=== PATIENT | male | born 1985 ===

== ENCOUNTER 2020-04-22 10:36 | Inpatient (IN) | payer MEDICAID ==
[~2020-04-22] VITALS: Ht 180.3 cm; Wt 100.0 kg
[2020-04-22] MEDS ORDERED: normal saline 1000ML IV soln IVB ONE (11:25)
[2020-04-22] MEDS ORDERED: ondansetron/PF 4mg/2ml inj IV ONE ×2 (11:25→13:45)
[2020-04-22] MEDS ORDERED: famotidine/PF 10 mg/ml inj IV ONE (11:25)
[2020-04-22 11:38] LABS: BASOPHILS % (AUTO) 0.1 % (0-1); EOSINOPHILS % (AUTO) 0.1 % (0-6); HEMATOCRIT 54.5 % (42.0-52.0); LYMPHOCYTES # (AUTO) 1.4 X10'3 (1.1-4.8); LYMPHOCYTES % (AUTO) 9.3 % (21-51); MEAN CORPUSCULAR HEMOGLOBIN 30.1 PG (27.0-31.0); MEAN CORPUSCULAR HGB CONC 33.4 g/dL (33.0-36.5); MEAN CORPUSCULAR VOLUME 90.2 FL (78-98); MONOCYTES # (AUTO) 0.8 X10'3 (0-0.9); MONOCYTES % (AUTO) 5.2 % (2-12); NEUTROPHILS # (AUTO) 12.7 X10'3 (1.8-7.7); NEUTROPHILS % (AUTO) 85.3 % (42-75); PLATELET COUNT 274 X10'3 (140-440); RED BLOOD COUNT 6.04 X10'6 (4.70-6.10); RED CELL DISTRIBUTION WIDTH 12.7 % (11.5-14.5); WHITE BLOOD COUNT 14.8 X10'3 (4.5-11.0)
[2020-04-22 11:40] LABS: HEMOGLOBIN 18.2 g/dl (14.0-17.9)
[2020-04-22 11:47] LABS: ALANINE AMINOTRANSFERASE 29 U/L (12-78); ALBUMIN 4.6 G/DL (3.4-5.0); ALKALINE PHOSPHATASE 73 IU/L (46-116); ANION GAP 11 (8-16); ASPARTATE AMINO TRANSFERASE 18 U/L (10-37); BILIRUBIN,TOTAL 0.6 MG/DL (0.1-1.0); BLOOD UREA NITROGEN 19 MG/DL (7-18); BUN/CREATININE RATIO 14.4 (5.4-32.0); CALCIUM 9.4 MG/DL (8.5-10.1); CHLORIDE 103 MMOL/L (99-107); CREATININE 1.32 MG/DL (0.60-1.10); GLUCOSE 118 MG/DL (70-104); LIPASE 54 U/L (73-393); POTASSIUM 3.7 MMOL/L (3.5-5.1); SODIUM 141 MMOL/L (135-145); TOTAL CARBON DIOXIDE 26.6 MMOL/L (24-32); TOTAL PROTEIN 9.3 G/DL (6.4-8.2); eGFR 63 ML/MIN
[2020-04-22 11:58] LABS: ETHANOL < 0.010 GM/DL (0.0-0.010)
--- NOTE | 2020-04-22 12:47 | NUR ---
vs updated and pt went to CT
[2020-04-22] MEDS ORDERED: iohexol 300mg/ml 100ml inj. ONE (12:49)
--- NOTE | 2020-04-22 13:10 | NUR ---
pt back from ct and second ns bolus started, asked pt to provide a ua, pt is not wanting to provide one, will reassess in 15 min
[2020-04-22] MEDS ORDERED: LORazepam 2 mg/ml vial IV ONE (13:45)
[2020-04-22] MEDS ORDERED: morphine 4 MG/ML inj SYRINge IV PRN (13:45)
[2020-04-22 13:50] LABS: CLARITY,URINE CLEAR (Clear); COLOR,URINE YELLOW (Yellow); GLUCOSE, URINE NEGATIVE (Neg); KETONES,URINE NEGATIVE (Neg); LEUKOCYTE ESTERASE ,URINE NEGATIVE (Neg); NITRITES, URINE NEGATIVE (Neg); OCCULT BLOOD,URINE SMALL (Neg); PH,URINE 5.5 (4.8-8.0); PROTEIN,URINE TRACE mg/dl (Neg); UROBILINOGEN,URINE 0.2 E.U/dL (0.2-1.0)
[2020-04-22 13:51] LABS: UA COLLECTION TYPE URINAL
[2020-04-22 13:58] LABS: MUCUS STRANDS FEW /LPF (Neg); SQUAMOUS EPITHELIAL CELL,UR FEW /LPF (FEW)
[2020-04-22 13:59] LABS: BACTERIA,URINE FEW /HPF (Neg); HYALINE CASTS 0-3 /LPF (NEGATIVE); RBC,URINE 0-2 /HPF (0-2); WBC,URINE 0-4 /HPF (0-4)
[2020-04-22] MEDS ORDERED: acetaminophen 325mg tablet PO PRN ×2 (14:20)
[2020-04-22] MEDS ORDERED: bisacodyl 10mg suppository rectal RC PRN (14:20)
[2020-04-22] MEDS ORDERED: potassium Cl 20 mEq SR tablet PO PRN (14:20)
[2020-04-22] MEDS ORDERED: mag hydrox/Alum hydrox/simeth 30ml oral suspension PO PRN (14:20)
[2020-04-22] MEDS ORDERED: potassium CL 10mEq/100ml bag 100 ML IV PRN ×2 (14:20)
[2020-04-22] MEDS ORDERED: metoclopramide 5 mg/ml inj IV PRN (14:20)
[2020-04-22] MEDS ORDERED: magnesium hydroxide 30ml (MOM) UD suspension PO PRN (14:20)
[2020-04-22] MEDS ORDERED: magnesium 2GM in 50ml NS 50 ML IV PRN (14:20)
[2020-04-22] MEDS ORDERED: magnesium 4gm in 100ml NS 100 ML IV PRN (14:20)
[2020-04-22] MEDS ORDERED: magnesium Cl slow-release 64mg tablet PO PRN (14:20)
[2020-04-22] MEDS ORDERED: ondansetron/PF 4mg/2ml inj IV PRN (14:20)
[2020-04-22] MEDS ORDERED: HYDROmorphone inj. 0.5 MG/0.5 ML DISP.SYRIN IV PRN (14:20)
[2020-04-22] MEDS: normal saline 1000ml 1,000 ML IV SCH (14:55)
--- NOTE | 2020-04-22 17:02 | NUR ---
awaiting in patient room assignment, pt is sleeping, ng tube is draining on low intermitent suction
--- NOTE | 2020-04-22 18:26 | NUR ---
ng tube draining, vs updated, pt is very sleepy but arousable
[2020-04-22] MEDS ORDERED: NO HOME MEDS (19:43)
[2020-04-22] MEDS: K and/or MAG REPLACEMENT MC SCH (19:57)
--- NOTE | 2020-04-22 20:10 | NUR ---
Patient in room ED 9. I have received report from DENI Macedo and had the opportunity to ask questions and assume patient care. Addendum: 04/22/20 at 2009 by Sugey Simon RN To be transferred and admitted to [facility].
[2020-04-22 20:30] VITALS: BP 128/78
[2020-04-23] VITALS: BP 117/82
[2020-04-23] MEDS: diatr meglu/diatrizoate 30ml oral sol.-(3 dose) bottle PO SCH ×3 (00:36→09:07)
[2020-04-23] MEDS: normal saline 1000ml 1,000 ML IV SCH ×5 (00:39→22:33)
--- NOTE | 2020-04-23 04:30 | NUR ---
Updated mother about patient's plan of care. Nurse was also able to obtain further PMH.
[2020-04-23 06:18] LABS: BASOPHILS % (AUTO) 0.1 % (0-1); EOSINOPHILS # (AUTO) 0.1 X10'3 (0-0.9); EOSINOPHILS % (AUTO) 0.6 % (0-6); HEMATOCRIT 47.8 % (42.0-52.0); HEMOGLOBIN 16.1 g/dl (14.0-17.9); LYMPHOCYTES # (AUTO) 1.3 X10'3 (1.1-4.8); LYMPHOCYTES % (AUTO) 12.3 % (21-51); MEAN CORPUSCULAR HEMOGLOBIN 30.5 PG (27.0-31.0); MEAN CORPUSCULAR HGB CONC 33.7 g/dL (33.0-36.5); MEAN CORPUSCULAR VOLUME 90.4 FL (78-98); MEAN PLATELET VOLUME 8.4 FL (7.4-10.4); MONOCYTES % (AUTO) 9.2 % (2-12); NEUTROPHILS # (AUTO) 8.5 X10'3 (1.8-7.7); NEUTROPHILS % (AUTO) 77.8 % (42-75); PLATELET COUNT 203 X10'3 (140-440); RED BLOOD COUNT 5.29 X10'6 (4.70-6.10); RED CELL DISTRIBUTION WIDTH 12.6 % (11.5-14.5); WHITE BLOOD COUNT 10.9 X10'3 (4.5-11.0)
[2020-04-23 06:21] LABS: ALANINE AMINOTRANSFERASE 23 U/L (12-78); ALBUMIN 3.4 G/DL (3.4-5.0); ALKALINE PHOSPHATASE 58 IU/L (46-116); ANION GAP 9 (8-16); ASPARTATE AMINO TRANSFERASE 13 U/L (10-37); BILIRUBIN,TOTAL 0.6 MG/DL (0.1-1.0); BLOOD UREA NITROGEN 12 MG/DL (7-18); CHLORIDE 107 MMOL/L (99-107); GLUCOSE 95 MG/DL (70-104); MAGNESIUM 1.8 MG/DL (1.5-2.4); POTASSIUM 3.5 MMOL/L (3.5-5.1); SODIUM 143 MMOL/L (135-145); TOTAL CARBON DIOXIDE 26.8 MMOL/L (24-32); TOTAL PROTEIN 6.8 G/DL (6.4-8.2); eGFR 70 ML/MIN
--- NOTE | 2020-04-23 06:28 | NUR ---
Problems reprioritized. Patient report given, questions answered & plan of care reviewed with DENI Maldonado.
[2020-04-23 07:00] VITALS: BP 122/88
[2020-04-23] MEDS: HYDROmorphone 1 mg/ml syringe IV PRN ×4 (07:37→21:30)
[2020-04-23] MEDS: K and/or MAG REPLACEMENT MC SCH ×2 (08:00→19:21)
--- NOTE | 2020-04-23 09:50 | NUR ---
PAGER ID: [phone] MESSAGE: [phone] Hanane Ramirez : patient requesting nicotine patch. he is a 2ppd smoker. thanks! -[phone]
--- NOTE | 2020-04-23 10:17 | NUR ---
PAGER ID: [phone] MESSAGE: [phone] Hanane Ramirez : DANNI..2nd CT scan completed and results are up. thanks!
[2020-04-23] MEDS: nicotine 21mg patch - 24 hr TD SCH (10:41)
[2020-04-23 11:47] VITALS: BP 129/75
--- NOTE | 2020-04-23 13:36 | NUR ---
Dr. Chambers rounded and discussed the need for a GI MD to r/o crohns although pt denies diarrhea. Order received to clamp NGT and DC if meets criteria this afternoon. Dr. Chambers to notify Dr. Gaspar.
--- NOTE | 2020-04-23 13:53 | NUR ---
NG clamped per MD orders. Pt resting comfortably.
--- NOTE | 2020-04-23 18:20 | NUR ---
Problems reprioritized. Patient report given, questions answered & plan of care reviewed with DENI Woods.
--- NOTE | 2020-04-23 18:26 | NUR ---
Patient in room [facility]. I have received report from DENI Maldonado and had the opportunity to ask questions and assume patient care.
--- NOTE | 2020-04-23 19:35 | NUR ---
NG unclamped since 1800. Assess canister for output, 100 mL. Per order, ok to DC NG if less than 150 mL. NG tube DC and patient tolerated well. Order place for clear liquid.
[2020-04-23 20:00] VITALS: BP 128/75
[2020-04-23] MEDS ORDERED: diatr meglu/diatrizoate 30ml oral sol.-(3 dose) bottle PO SCH (21:00)
[2020-04-24] VITALS: BP 126/76
[2020-04-24] MEDS: normal saline 1000ml 1,000 ML IV SCH ×2 (04:15→12:04)
[2020-04-24] MEDS: HYDROmorphone 1 mg/ml syringe IV PRN ×4 (04:34→19:59)
[2020-04-24 06:00] LABS: BASOPHILS % (AUTO) 0.2 % (0-1); EOSINOPHILS # (AUTO) 0.1 X10'3 (0-0.9); EOSINOPHILS % (AUTO) 0.9 % (0-6); HEMATOCRIT 41.3 % (42.0-52.0); HEMOGLOBIN 13.9 g/dl (14.0-17.9); LYMPHOCYTES # (AUTO) 1.8 X10'3 (1.1-4.8); LYMPHOCYTES % (AUTO) 17.5 % (21-51); MEAN CORPUSCULAR HEMOGLOBIN 30.4 PG (27.0-31.0); MEAN CORPUSCULAR HGB CONC 33.8 g/dL (33.0-36.5); MEAN PLATELET VOLUME 8.1 FL (7.4-10.4); MONOCYTES # (AUTO) 0.9 X10'3 (0-0.9); MONOCYTES % (AUTO) 8.2 % (2-12); NEUTROPHILS # (AUTO) 7.8 X10'3 (1.8-7.7); NEUTROPHILS % (AUTO) 73.2 % (42-75); PLATELET COUNT 184 X10'3 (140-440); RED BLOOD COUNT 4.59 X10'6 (4.70-6.10); RED CELL DISTRIBUTION WIDTH 12.3 % (11.5-14.5); WHITE BLOOD COUNT 10.6 X10'3 (4.5-11.0)
--- NOTE | 2020-04-24 06:30 | NUR ---
Problems reprioritized. Patient report given, questions answered & plan of care reviewed with Gely Cleaning RN.
[2020-04-24 06:32] LABS: ALANINE AMINOTRANSFERASE 16 U/L (12-78); ALBUMIN 2.9 G/DL (3.4-5.0); ALBUMIN/GLOBULIN RATIO 0.9 (1.1-1.5); ALKALINE PHOSPHATASE 49 IU/L (46-116); ANION GAP 7 (8-16); ASPARTATE AMINO TRANSFERASE 11 U/L (10-37); BILIRUBIN,TOTAL 0.8 MG/DL (0.1-1.0); BLOOD UREA NITROGEN 7 MG/DL (7-18); BUN/CREATININE RATIO 6.5 (5.4-32.0); CHLORIDE 104 MMOL/L (99-107); CREATININE 1.08 MG/DL (0.60-1.10); GLUCOSE 90 MG/DL (70-104); MAGNESIUM 1.7 MG/DL (1.5-2.4); POTASSIUM 3.1 MMOL/L (3.5-5.1); SODIUM 140 MMOL/L (135-145); TOTAL CARBON DIOXIDE 29.4 MMOL/L (24-32); TOTAL PROTEIN 6.2 G/DL (6.4-8.2); eGFR 79 ML/MIN
--- NOTE | 2020-04-24 06:37 | NUR ---
Patient in room [facility]A. I have received report from DENI ANDRADE and had the opportunity to ask questions and assume patient care.
[2020-04-24 07:00] VITALS: BP 116/66
[2020-04-24] MEDS: K and/or MAG REPLACEMENT MC SCH ×2 (08:00→19:41)
[2020-04-24] MEDS: potassium Cl 20 mEq SR tablet PO PRN ×3 (08:48→19:44)
[2020-04-24] MEDS: nicotine 21mg patch - 24 hr TD SCH (08:49)
[2020-04-24 11:00] VITALS: BP 125/73
--- NOTE | 2020-04-24 18:36 | NUR ---
Problems reprioritized. Patient report given, questions answered & plan of care reviewed with MARY HERNANDEZ RN.
--- NOTE | 2020-04-24 18:40 | NUR ---
Patient in room [facility]. I have received report from YONG CHEEMA and had the opportunity to ask questions and assume patient care.
[2020-04-24 19:00] VITALS: BP 98/60
[2020-04-25 00:53] VITALS: BP 110/62
[2020-04-25] MEDS: HYDROmorphone 1 mg/ml syringe IV PRN ×2 (01:19→05:46)
[2020-04-25 05:23] LABS: BASOPHILS % (AUTO) 0.4 % (0-1); EOSINOPHILS # (AUTO) 0.1 X10'3 (0-0.9); EOSINOPHILS % (AUTO) 1.9 % (0-6); HEMATOCRIT 40.7 % (42.0-52.0); HEMOGLOBIN 13.8 g/dl (14.0-17.9); LYMPHOCYTES # (AUTO) 1.5 X10'3 (1.1-4.8); LYMPHOCYTES % (AUTO) 24.1 % (21-51); MEAN CORPUSCULAR HEMOGLOBIN 30.2 PG (27.0-31.0); MEAN CORPUSCULAR VOLUME 88.8 FL (78-98); MEAN PLATELET VOLUME 8.1 FL (7.4-10.4); MONOCYTES # (AUTO) 0.6 X10'3 (0-0.9); NEUTROPHILS % (AUTO) 63.6 % (42-75); PLATELET COUNT 184 X10'3 (140-440); RED BLOOD COUNT 4.58 X10'6 (4.70-6.10); RED CELL DISTRIBUTION WIDTH 12.4 % (11.5-14.5); WHITE BLOOD COUNT 6.3 X10'3 (4.5-11.0)
[2020-04-25 05:45] LABS: ALANINE AMINOTRANSFERASE 14 U/L (12-78); ALBUMIN/GLOBULIN RATIO 0.9 (1.1-1.5); ALKALINE PHOSPHATASE 48 IU/L (46-116); ANION GAP 5 (8-16); ASPARTATE AMINO TRANSFERASE 12 U/L (10-37); BILIRUBIN,TOTAL 0.3 MG/DL (0.1-1.0); BLOOD UREA NITROGEN 4 MG/DL (7-18); CALCIUM 8.6 MG/DL (8.5-10.1); CHLORIDE 105 MMOL/L (99-107); GLUCOSE 116 MG/DL (70-104); MAGNESIUM 1.8 MG/DL (1.5-2.4); POTASSIUM 3.4 MMOL/L (3.5-5.1); SODIUM 141 MMOL/L (135-145); TOTAL PROTEIN 6.4 G/DL (6.4-8.2)
[2020-04-25 06:25] LABS: BUN/CREATININE RATIO 3.7 (5.4-32.0); CREATININE 1.08 MG/DL (0.60-1.10); eGFR 79 ML/MIN
--- NOTE | 2020-04-25 06:30 | NUR ---
Problems reprioritized. Patient report given, questions answered & plan of care reviewed with TWILA CHEEMA.
--- NOTE | 2020-04-25 06:46 | NUR ---
Patient in room [facility]. I have received report from Neelima Ortez RN and had the opportunity to ask questions and assume patient care.
[2020-04-25] MEDS: K and/or MAG REPLACEMENT MC SCH (08:00)
[2020-04-25] MEDS: nicotine 21mg patch - 24 hr TD SCH (08:00)
[2020-04-25] MEDS ORDERED: HYDR-4353 PO (09:20)
== END 2020-04-25 10:00 | disposition home or self-care (01) | DRG 247 ==
LOC: ER 10:37 → ED HOLD 14:19 → SUR 3N 20:20
PROVIDERS: ADMIT Family Medicine; ATTEND Family Medicine
PROC: 0D9670Z Drainage of Stomach with Drainage Device, Via Natural or Artificial Opening (ICD-10-PCS; principal; 2020-04-22)
PROC: BW211ZZ Computerized Tomography (CT Scan) of Abdomen and Pelvis using Low Osmolar Contrast (ICD-10-PCS; 2020-04-22)
DX: K56.609 Unspecified intestinal obstruction, unspecified as to partial versus complete obstruction (principal); N17.9 Acute kidney failure, unspecified; D64.9 Anemia, unspecified; D72.829 Elevated white blood cell count, unspecified; E87.6 Hypokalemia; F17.210 Nicotine dependence, cigarettes, uncomplicated; Z71.6 Tobacco abuse counseling; K50.90 Crohn's disease, unspecified, without complications
CPT/HCPCS: 36415; 71045; 74176; 74177; 80053; 80320; 81001; 83690; 83735; 85025; 85610; 87081; 93005; 99285; G0378; J1170; J2060; J2270; J2405; J3490; J7030; Q9963; Q9967